=== PATIENT | female | born 1940 | race Asian ===

== ENCOUNTER 2016-10-07 10:45 | Outpatient (CLI) | payer OTHER | END 2016-10-07 11:45 | disposition home or self-care (01) | LOC: US 10:45 | DX: M79.605 Pain in left leg (principal); M79.604 Pain in right leg ==

== ENCOUNTER 2016-12-30 08:34 | Outpatient (CLI) | payer OTHER | END 2016-12-30 09:35 | disposition home or self-care (01) | LOC: MAMMO 08:34 | DX: Z12.31 Encounter for screening mammogram for malignant neoplasm of breast (principal) | CPT/HCPCS: G0202-TC ==

== ENCOUNTER 2017-10-20 09:45 | Outpatient (CLI) | payer OTHER | END 2017-10-20 19:25 | disposition home or self-care (01) | LOC: RAD 09:45 | DX: Z78.0 Asymptomatic menopausal state (principal) ==

== ENCOUNTER 2018-01-25 08:55 | Outpatient (CLI) | payer OTHER | END 2018-01-25 22:09 | disposition home or self-care (01) | LOC: MAMMO 08:55 | DX: Z12.31 Encounter for screening mammogram for malignant neoplasm of breast (principal) ==

== ENCOUNTER 2019-02-03 10:53 | Outpatient (CLI) | payer OTHER | END 2019-02-03 19:42 | disposition home or self-care (01) | LOC: MAMMO 10:53 | DX: Z12.31 Encounter for screening mammogram for malignant neoplasm of breast (principal) ==

== ENCOUNTER 2020-05-22 15:52 | Outpatient (CLI) | payer OTHER | END 2020-05-22 20:34 | disposition home or self-care (01) | LOC: INF 15:52 | PROVIDERS: ATTEND Internal Medicine | DX: Z23 Encounter for immunization (principal) | CPT/HCPCS: 96372 ==

== ENCOUNTER 2020-06-13 08:10 | Outpatient (CLI) | payer OTHER | END 2020-06-13 19:20 | disposition home or self-care (01) | LOC: INF 08:10 | PROVIDERS: ATTEND Internal Medicine | DX: Z23 Encounter for immunization (principal) | CPT/HCPCS: 96372 ==

== ENCOUNTER 2020-12-25 08:50 | Outpatient (CLI) | payer OTHER | END 2020-12-25 20:40 | disposition home or self-care (01) | LOC: MAMMO 08:50 | PROVIDERS: ATTEND Nurse Practitioner Family | DX: Z12.31 Encounter for screening mammogram for malignant neoplasm of breast (principal) ==

== ENCOUNTER 2021-02-21 12:27 | Outpatient (CLI) | payer OTHER | END 2021-02-21 23:03 | disposition home or self-care (01) | LOC: INF 12:27 | PROVIDERS: ATTEND Internal Medicine | DX: Z23 Encounter for immunization (principal) | CPT/HCPCS: 0004A ==

== ENCOUNTER → 2022-01-21 | Outpatient (CLI) | payer OTHER | LOC: MAMMO 01-02 08:30 | PROVIDERS: ATTEND Nurse Practitioner Family | DX: Z12.31 Encounter for screening mammogram for malignant neoplasm of breast (principal) ==